=== PATIENT | male | born 2000 | race Caucasian/White ===

== ENCOUNTER 2018-09-21 01:24 | Emergency (ER) | payer OTHER, MEDICAID, SELFPAY ==
[2018-09-21 01:25] VITALS: BP 114/92; PULSE 77; RESP 18; TEMP 36.5; O2SAT 100; BMI 29.5
--- NOTE | 2018-09-21 01:26 | ED.RN ---
CALLED ANDREE FROM [facility] TO TEST THIS PT
--- NOTE | 2018-09-21 01:40 | ED.DCSUM_ITS ---
- ER Visit Summary Date of Service: 09/21/18 Chief Complaint: Right elbow pain History of Present Illness: The patient is a 18 M who presents with right elbow pain. He is right-handed. He states he does have a history of prior similar symptoms. 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 He states he has a history of ulnar collateral ligament sprain and triceps tear. He states that tonight while at work he was having pain with lifting boxes. He denies having pain before he went to work but is noted to be wearing a compression sleeve on his right arm. He denies any specific injury. No fall. He denies recent illness such as fevers nausea vomiting chest pain shortness of breath. Physical Examination: Afebrile vitals are normal Heart regular No respiratory distress Patient has active full range of motion of the right elbow no focal bony tenderness he indicates that his pain is along the ulnar side of the elbow he has brisk capillary refill normal sensation light touch 2+ radial pulse no tenderness or pain with range of motion of the wrist or shoulder Test Results: Not indicated Emergency Department Course and Treatment: Patient has a history of prior similar symptoms and prior UCL sprain. He has no traumatic injury. I am not concerned for fracture or acute bony injury and x-rays are not indicated. This is most likely UCL sprain. He was advised on supportive care including rest ice elevation. He was given naproxen here. Patient discharged. Treatment Plan: [] Disposition: Discharge Impression: Right elbow sprain This note was generated with InExchange dictation software. It may contain incorrect words, spelling, and punctuation that were not noted in review of the chart prior to signing ED Disposition - Plan for ED Patient: Referrals: Josy Teague MD [Primary Care Provider] -
--- NOTE | 2018-09-21 01:41 | DCINST.ED_ITS ---
ED Disposition - Plan for ED Patient: Instructions: ED Sprain Elbow Referrals: Josy Teague MD [Primary Care Provider] - [facility] [GROUP OF PHYSICIANS] -
--- NOTE | 2018-09-21 01:41 | ED.DEP ---
ED Disposition - Plan for ED Patient: Instructions: ED Sprain Elbow Referrals: Josy Teague MD [Primary Care Provider] - [facility] [GROUP OF PHYSICIANS] -
[2018-09-21] MEDS: Naproxen 500 MG Tablet PO (01:49)
[2018-09-21 02:14] VITALS: RESP 16
== END 2018-09-21 02:14 | disposition home or self-care (01) ==
LOC: ED 01:50
PROVIDERS: Emergency Provider Emergency Medicine; Family Provider Pediatrics; PCP Pediatrics
DX: S53.401A Unspecified sprain of right elbow, initial encounter (principal); X58.XXXA Exposure to other specified factors, initial encounter; Y93.9 Activity, unspecified; Y92.9 Unspecified place or not applicable
CPT/HCPCS: 99283

== ENCOUNTER 2021-06-18 18:19 | Emergency (ER) | payer OTHER, SELFPAY ==
[2021-06-18 18:20] VITALS: BP 137/77; PULSE 73; RESP 16; TEMP 36.8; O2SAT 99; BMI 26.9
--- NOTE | 2021-06-18 18:45 | EDS_ITS ---
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 Since that time has had pain with flexion at the hip as well as some extension. He denies any numbness or tingling distally. Pain with ambulation PFSH PFSH Medical History no medical history Allergy/AdvReac Type Severity Reaction Status Date / Time No Known Allergies Allergy Verified 06/18/21 18:20 Social History (Updated 06/18/21 @ 18:[address] Arun Cid, DO) Smoking Status: Never smoker substance use type: does not use ROS ROS ED Constitutional Constitutional ED: Denies chills, fever(s) or weight loss Eyes Eyes: Denies change in vision or diplopia ENT ENT ED: Denies ear pain, rhinorrhea or sore throat Cardiovascular Cardiovascular: Denies chest pain, orthopnea, palpitations or racing heartbeat Respiratory/Chest Respiratory/Chest: Denies cough, dyspnea or orthopnea Gastrointestinal Gastrointestinal: Denies abdominal pain, diarrhea, nausea or vomiting Genitourinary Genitourinary ED: Denies dysuria, hematuria or urinary frequency Musculoskeletal Musculoskeletal: Reports other Details: see HPI ; Denies arthralgias or myalgias Integumentary Denies abscess or rash Neurologic Neurologic: Denies headache(s) or weakness Psychiatric Psychiatric: Denies anxiety, depression, suicidal ideation or suicidal thoughts Endocrine Endocrinology: Denies polydipsia, polyphagia or polyuria Allergic/Immunologic Allergic/Immunologic ED: Denies mouth swelling, tongue swelling or urticaria EXAM Physical Exam Const Vital Signs: 06/18/21 18:20 Temperature 98.3 F Temperature Source Temporal Pulse Rate 73 Respiratory Rate 16 Blood Pressure 137/77 H Blood Pressure Mean 97 Pulse Ox 99 Oxygen Delivery Method Room Air Positive well nourished and well developed General Appearance ED: well developed HEENT Reports normocephalic, head/scalp atraumatic, TM's clear and moist mucous membranes Negative for trauma Tympanic Membrane ED: Yes TM's clear Eyes PERRL and EOMs intact bilaterally Neck no lymphadenopathy, supple and no JVD Resp normal respiratory effort and clear to auscultation bilaterally Cardio regular rate, regular rhythm and no murmurs GI normal to inspection, nondistended, normoactive bowel sounds and non-tender Palpation: soft Back/Spine no CVA tenderness and normal ROM Extremity Extremity Narrative: Patient has very focal tenderness over his iliopsoas and quadricep insertion point. Is no significant hematoma. I do not appreciate aneurysm/pseudoaneurysm. Strong femoral pulse. There is no ecchymosis noted. No hernia is palpated. Scrotum is normal. General Extremety ED: Yes tenderness; Negative for edema General Extremity: Negative for edema Neuro oriented x3 and CN's II-XII intact bilaterally Sensorium / Orientation: alert Motor Exam: strength 5/5 throughout Psych mental status grossly normal Mood & Affect: Negative for depressed or tearful Skin no rashes or lesions noted and no wounds MDM MDM MDM Narrative Medical decision making narrative: My interpretation of the plain film of the pelvis is no acute process. I suspect the patient has sustained a deep hip flexor bruise. Would recommend rest ice and time. Follow-up with primary care if not improving Discharge Plan Triage Chief Complaint: Lower Extremity Injury ED Provider: Arun Cid Dx/Rx/DC Orders Clinical Impression: Hematoma of iliopsoas muscle Instructions: ED Hematoma Primary Care Provider: Josy Teague Referrals: Josy Teague MD [Primary Care Provider] - 10-14 Days if not better Disposition Disposition: Home, Self Care
--- NOTE | 2021-06-18 18:55 | RAD_ITS ---
STUDY: X-RAY - PELVIS REASON FOR EXAM: Male, 20 years old. Injured right leg. [employer] this morning during training session. Hand cuff krishnamurthy which shoved into right groin area. TECHNIQUE: One view of the pelvis was obtained. COMPARISON: None. FINDINGS: There is a non-specific bowel gas pattern. Normal visualized soft tissue structures. Normal bilateral iliac wings, sacroiliac joints and visualized sacrum. Normal visualized bilateral superior and inferior pubic rami. Normal pubic symphysis. Normal ischial tuberosities. Normal visualized right femoral head. Normal right acetabulum. Normal right hip joint. Normal visualized left femoral head. Normal left acetabulum. Normal left hip joint. RAD/Pelvis 1 or 2 Views IMPRESSION: Normal x-ray examination of the pelvis. Electronically Signed: Lacho Neely DO at 19:06 EDT Tel [phone], Service support ,
[2021-06-18 19:39] VITALS: RESP 16
== END 2021-06-18 19:40 | disposition home or self-care (01) ==
PROVIDERS: Emergency Provider Emergency Medicine; PCP Pediatrics
DX: S70.01XA Contusion of right hip, initial encounter (principal); W50.0XXA Accidental hit or strike by another person, initial encounter; Y93.9 Activity, unspecified; Y92.9 Unspecified place or not applicable
CPT/HCPCS: 72170; 99282

== ENCOUNTER 2025-01-16 00:44 | Emergency (ER) | payer OTHER, SELFPAY ==
[2025-01-16 00:45] VITALS: BP 177/82; PULSE 81; RESP 16; TEMP 36.6; O2SAT 98
--- OUTSIDE RECORDS SUMMARY | 2025-01-16 01:32 | XMS RPT_ITS | CCD ---
Author Organization [facility] Care Team Providers Care Repair Tech Name [employer], [facility] Physicians Primary Care Provider [employer], [facility] Primary Care Unavailable STEPHON, ARIANA Referring Unavailable STEPHON, ARIANA Attending Unavailable STEPHON, ARIANA Referring Unavailable INC, [facility] Primary Care Unavailable INC, [facility] Primary Care Unavailable STEPHON, ARIANA Referring Unavailable Problems Problem Classification Problem Date Documented Da te Episodic/Chronic Administrative/social admission (8 sources) Patient encounter status; Translations: [Encounter for pre-employment examination] Onset: 03-21-2023 03-21-2023 Episodic Results Test Name Value Interpretation Reference Range Facility ECG 12-LEADon 03-29-2023 ECG 12-LEAD IMPRESSION: SINUS RHYTHM No previous ECG available for comparison Electronically Signed On 03-29-2023 11:23:10 EDT by Blair Perez Normal [facility] [employer] [facility] No Panel InformationOrdered By: Blair Perez on 03-29-2023 P [place] 12 degrees [facility] Work Phone: VT Interval 172 ms [employer] Work Phone: QRS [place] 48 degrees [facility] Work Phone: QRSD Interval 94 ms [facility] Work Phone: QT Interval 400 ms [employer] Work Phone: QTC Interval 400 ms [employer] Work Phone: T Wave [place] 19 degrees [employer] Work Phone: [employer] Work Phone: No Panel Informationon 03-29 SINUS RHYTHM No previous ECG available for comparison Electronically Signed On 03-29-2023 11:23:10 EDT by Blair Perez Blair Lozano M D - 03/29/2023 IMPRESSION: SINUS RHYTHM No previous ECG available for comparison Electronically Signed On 03-29-2023 11:23:10 EDT by Blair Perez [facility] [employer] Vital signsOrdered By: Juan Perez on 03-29-2023 Heart rate 60 /min bpm [facility] [employer] Phone: Cardiac stress study Procedu reOrdered By: Seth Chu on 03-21-2023 Angina Index 0 [facility] [employer] Work Phone: Baseline Diastolic BP 80 mmHg [place] [employer] Work Phone: Baseline HR 100 bpm [facility] [employer] Work Phone: Baseline ST Depression 0 mm [facility] [employer] Work Phone: Baseline Systolic BP 136 mmHg [facility] [employer] Work Phone: Moses Treadmill Score 11 [facility] [employer] Work Phone: Exercise Duration Seconds 18 sec [facility] [employer] Work Phone: Exercise Duration Time 11 min [facility] [employer] Work Phone: Recovery Stage 1 BP 170/80 mmHg [facility] [employer] Phone: Recovery Stage 1 HR 137 bpm [facility] [employer] Work Phone: Recovery Stage 2 BP 149/57 mmHg [facility] [employer] Phone: Recovery Stage 2 HR 125 bpm [facility] [employer] Phone: Recovery Stage 3 BP 166/70 mmHg [facility] [employer] Work Phone: Recovery Stage 3 HR 117 bpm [facility] [employer] Work Phone: Stress Diastolic BP 100 mmHg [facility] [employer] Work Phone: Stress Estimated Workload 13.4 METS [facility] [employer] Work Phone: Stress Peak HR 193 bpm [facility] Work Phone: Stress Percent HR Achieved 98 % [facility] [employer] Phone: Stress Rate Pressure Product 72561 bpm*mmHg [facility] [employer] Work Phone: Stress ST Depression 0 mm [facility] [employer] Work Phone: Stress Stage 1 BP 190/88 mmHg [facility] Work Phone: Stress Stage 1 HR 118 bpm [facility] Work Phone: Stress Stage 2 BP 190/96 mmHg [facility] Work Phone: Stress Stage 2 HR 144 bpm [facility] Work Phone: Stress Stage 3 BP 186/100 mmHg [facility] Work Phone: Stress Stage 3 HR 179 bpm [facility] Work Phone: Stress Systolic BP 186 mmHg [facility] Work Phone: Stress Target HR 196 bpm [facility] Work Phone: Cardiac stress study Procedu gutierrez 03-21-2023 Stress ECG: There were no arrhythmias during stress. No ST depression was noted. Arrhythmias during recovery: rare PVCs. There were no ST changes during recovery. Conclusion: The EKG stress test is negative for ischemia. Stress Test: A Ankit protocol stress test was performed. Overall, the patient's exercise capacity was average for their age. The patient reached stage 4 of the protocol after exercising for 11 min and 18 sec. The patient experienced no angina during the test. Blood pressure demonstrated a normal response and heart rate demonstrated a normal response to stress. The patient's heart rate recovery was normal. The patient reported no symptoms during the stress test. Resting ECG: The ECG shows normal sinus rhythm. Resting ECG shows no ST-segment deviation. Resting ECG The ECG shows normal sinus rhythm. Resting ECG shows no ST-segment deviation. Stress Findings A Ankit protocol stress test was performed. Overall, the patient's exercise capacity was average for their age. The patient reached stage 4 of the protocol after exercising for 11 min and 18 sec. The patient experienced no angina during the test. Masha rating of perceived exertion was 17. Blood pressure demonstrated a normal response and heart rate demonstrated a normal response to stress. The patient's heart rate recovery was normal. The patient reported no symptoms prior to the stress test. The patient reported no symptoms during the stress test. The test was stopped because the patient experienced fatigue. Stress ECG There were no arrhythmias during stress. No ST depression was noted. Arrhythmias during recovery: rare PVCs. There were no ST changes during recovery. Conclusion: The EKG stress test is negative for ischemia. CV EPIPHANY XR Chest 2 Viewson Negative chest. Report Dictated on Electronically Signed By: Lefty Mcqueen DO Electronically Signed Date/Time: 03/21/2023 11:32 AM EDT [facility] 2000 [id number] Exam Date/Time: 03/21/2023 11:39 Procedure: XR CHEST 2 VIEWS Ordering Provider: MCINTYRE MICHAEL Reason For Exam: Z02.1 CHEST, PA & LATERAL: INDICATION: Preemployment physical COMPARISON: No previous studies are available for comparison. PA and lateral views of the chest were obtained. The heart is normal in size. The mediastinal silhouette is normal. The lungs are clear. There are no effusions or infiltrates. There is no pleural thickening. The osseous structures are unremarkable. [facility] Lefty Mcqueen DO - 03/21/2023 Patient Name: KHOI ANNE : 2000 Exam Date/Time: 03/21/2023 11:39 Procedure: XR CHEST 2 VIEWS Ordering Provider: MCINTYRE MICHAEL Reason For Exam: Z02.1 CHEST, PA & LATERAL: INDICATION: Preemployment physical COMPARISON: No previous studies are available for comparison. PA and lateral views of the chest were obtained. The heart is normal in size. The mediastinal silhouette is normal. The lungs are clear. There are no effusions or infiltrates. There is no pleural thickening. The osseous structures are unremarkable. IMPRESSION: Negative chest. Report Dictated on Electronically Signed By: Lefty Mcqueen DO Electronically Signed Date/Time: 03/21/2023 11:32 AM EDT [facility] [employer] Radiology Study observation (narrative) [employer] XR Chest 2 ViewsOrdered By: Lefty Mcqueen on 03-21-2023 [employer] Work Phone: Urgent Care Visit Reporton 1 2020 Urgent Care Visit Report [facility] [address] [place] [address] OFFICE VISIT Date of Service: 07/02/21 MR#: [id number] Acct: [id number] Name: KHOI ANNE Rep #: [id number] : 2000 Provider: ERICA Thomson Age/Sex: 20/M Location: [facility] [place] Status: Signed Intake Intake Visit Reasons: PE PHYSICAL/COW Allergies No Known Allergies Allergy (Verified 06/29/21 14:19) [facility] Medical History (Updated 06/29/21 @ 14:19 by Jane Carolina) Physical exam, pre-employment Social History (System 06/29/21 @ 14:19 by Jane Carolina) Smoking Status: Never smoker alcohol intake: never substance use type: does not use HPI HPI Details: KHOI ANNE, is a 20 M who presents to the office today for preemployment physical. Please see corresponding scanned documents with today's date. Office Procedures Physical Exam Coding PE Coding Pre-employment PE: Yes Coding Level of Care Code No Charge Diagnoses Physical exam, pre-employment Z02.1 CPT Codes PE Coding - Pre-employment PE: Yes (PREPE) Assessment and Plan Assessment and Plan (1) Physical exam, pre-employment: Status: Acute 07/02/21 1243 Date Ozzie Angelo Signature: Date (if applicable) CC: Normal [facility] Emergency Department Summary on 06-18-2021 Emergency Department Summary [facility] Medical Records Department [address] [place] [address] Emergency Department Summary 06/18/21 MR#: [id number] Acct: [id number] Name: KHOI ANNE Rep #: [id number] : 2000 20 From: Arun Cid DO PCP: Dr. 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 Since that time has had pain with flexion at the hip as well as some extension. He denies any numbness or tingling distally. Pain with ambulation PFSH PFSH Medical History no medical history Allergy/AdvReac Type Severity Reaction Status Date / Time No Known Allergies Allergy Verified 06/18/21 18:20 Social History (Updated 06/18/21 @ 18:[address] Arun Cid DO) Smoking Status: Never smoker substance use type: does not use ROS ROS ED Constitutional Constitutional ED: Denies chills, fever(s) or weight loss Eyes Eyes: Denies change in vision or diplopia ENT ENT ED: Denies ear pain, rhinorrhea or sore throat Cardiovascular Cardiovascular: Denies chest pain, orthopnea, palpitations or racing heartbeat Respiratory/Chest Respiratory/Chest: Denies cough, dyspnea or orthopnea Gastrointestinal Gastrointestinal: Denies abdominal pain, diarrhea, nausea or vomiting Genitourinary Genitourinary ED: Denies dysuria, hematuria or urinary frequency Musculoskeletal Musculoskeletal: Reports other Details: see HPI ; Denies arthralgias or myalgias Integumentary Denies abscess or rash Neurologic Neurologic: Denies headache(s) or weakness Psychiatric Psychiatric: Denies anxiety, depression, suicidal ideation or suicidal thoughts Endocrine Endocrinology: Denies polydipsia, polyphagia or polyuria Allergic/Immunologic Allergic/Immunologic ED: Denies mouth swelling, tongue swelling or urticaria EXAM Physical Exam Const Vital Signs: 06/18/21 18:20 Temperature 98.3 F Temperature Source Temporal Pulse Rate 73 Respiratory Rate 16 Blood Pressure 137/77 H Blood Pressure Mean 97 Pulse Ox 99 Oxygen Delivery Method Room Air Positive well nourished and well developed General Appearance ED: well developed HEENT Reports normocephalic, head/scalp atraumatic, TM's clear and moist mucous membranes Negative for trauma Tympanic Membrane ED: Yes TM's clear Eyes PERRL and EOMs intact bilaterally Neck no lymphadenopathy, supple and no JVD Resp normal respiratory effort and clear to auscultation bilaterally Cardio regular rate, regular rhythm and no murmurs GI normal to inspection, nondistended, normoactive bowel sounds and non-tender Palpation: soft Back/Spine no CVA tenderness and normal ROM Extremity Extremity Narrative: Patient has very focal tenderness over his iliopsoas and quadricep insertion point. Is no significant hematoma. I do not appreciate aneurysm/pseudoaneury sm. Strong femoral pulse. There is no ecchymosis noted. No hernia is palpated. Scrotum is normal. General Extremety ED: Yes tenderness; Negative for edema General Extremity: Negative for edema Neuro oriented x3 and CN's II-XII intact bilaterally Sensorium / Orientation: alert Motor Exam: strength 5/5 throughout Psych mental status grossly normal Mood Affect: Negative for depressed or tearful Skin no rashes or lesions noted and no wounds MDM MDM MDM Narrative Medical decision making narrative: My interpretation of the plain film of the pelvis is no acute process. I suspect the patient has sustained a deep hip flexor bruise. Would recommend rest ice and time. Follow-up with primary care if not improving Discharge Plan Triage Chief Complaint: Lower Extremity Injury ED Provider: Arun Cid Dx/Rx/DC Orders Clinical Impression: Hematoma of iliopsoas muscle Instructions: ED Hematoma Primary Care Provider: Josy Teague Referrals: Josy Teague MD [Primary Care Provider] - 10-14 Days if not better Disposition Disposition: Home, Self Care What to do if you have Problems For any increased pain, shortness of breath, bleeding, nausea or vomiting, chest pain, or any unexpected problems, contact your Primary Care Provider. Call [facility] ([phone]) or report to the closest Emergency Room. Call 911 if necessary. 06/18/21 9697 Cosigner Signature (if applicable): CC: Dr. Josy Teague MD Signed Normal [facility] Pelvis 1 or 2 Viewson 2020 Pelvis 1 or 2 Views [facility] Imaging Services [address] [place] [address] Pelvis 1 or 2 Views MR#: [id number] Acct: [id number] Name: KHOI ANNE Rep #: [id number] : 2000 M 20 From: Lacho Neely DO PCP: Dr. Josy Teague MD Status: DEP ER Study: Pelvis 1 or 2 Views Date of Exam: 06/18/21 Exam# [id number] Ordering Dr: Arun Cid DO STUDY: X-RAY - PELVIS REASON FOR EXAM: Male, 20 years old. Injured right leg. [employer] this morning during training session. Hand cuff krishnamurthy which shoved into right groin area. TECHNIQUE: One view of the pelvis was obtained. COMPARISON: None. FINDINGS: There is a non-specific bowel gas pattern. Normal visualized soft tissue structures. Normal bilateral iliac wings, sacroiliac joints and visualized sacrum. Normal visualized bilateral superior and inferior pubic rami. Normal pubic symphysis. Normal ischial tuberosities. Normal visualized right femoral head. Normal right acetabulum. Normal right hip joint. Normal visualized left femoral head. Normal left acetabulum. Normal left hip joint. RAD/Pelvis 1 or 2 Views IMPRESSION: Normal x-ray examination of the pelvis. Electronically Signed: Lacho Neely DO at 19:06 EDT Tel [phone], Service support , CC: Dr. Josy Teague MD; Dr. Arun Cid DO Mammography Technologist: Signed Normal [facility] Urgent Care Visit Reporton 0 12-25-2020 Urgent Care Visit Report [facility] [address] [place] [address] [address] [place] [address] OFFICE VISIT Date of Service: 12/25/20 MR#: [id number] Acct: [id number] Name: KHOI ANNE Rep #: [id number] : 2000 Provider: ERICA colmenares Age/Sex: 20/M Location: [facility] [place] Status: Signed Intake Intake Visit Reasons: [employer] PHYSICAL Allergies No Known Allergies Allergy (Verified 09/25/18 09:26) [facility] Medical History (Updated 12/25/20 @ 14:30 by ERICA Campos) Physical exam, pre-employment Social History (Updated 09/25/18 @ 18:31 by ERICA Johnson) Smoking Status: Never smoker alcohol intake: never HPI HPI Details: KHOI ANNE, is a 20 M who presents to the office today for Office Procedures Physical Exam Coding PE Coding Sports/School Physical: No DOT PE: No Pre-employment PE: Yes Additional Details: [employer] Coding Level of Care Code No Charge Diagnoses Physical exam, pre-employment Z02.1 CPT Codes PE Coding - Pre-employment PE: Yes (PREPE) Assessment and Plan Assessment and Plan (1) Physical exam, pre-employment: Status: Acute Plan: See attached scanned [facility] preemployment physical examination forms corresponding with today's date 12/25/20 1430 Date Conrado Angelo Signature: Date (if applicable) CC: [facility] 04-16-2019 [facility] Office Visit ([facility] ) KHOI ANNE ([id number]) 2000 M Date Time Provider Department 04/16/19 8:30 PM RUBÉN HERNANDEZ) [facility] During your visit today, we recorded the following information about you: Temperature Pulse Respiration Blood pressure 97.3 degrees 78/minute 16/minute 122/70 Weight 93.9 kg Rubén Hernandez PA-C 04/16/2019 9:07 PM Signed Subjective HPI Pt presents with left upper dental pain for 4 days. He denies facial pain or swelling. It has been years since he has seen a dentist. No fever or drainage. He tried tylenol and ibuprofen otc. The ibuprofen helped some. Review of Systems HENT: Dental pain All other systems reviewed and are negative. PAST MEDICAL HISTORY Diagnosis Date - PM - PAST MEDICAL HISTORY OF 06/2000 Sutures in forehead - PM - PAST MEDICAL HISTORY OF 03/2008 Normal Color Vision Current Outpatient Medications Medication Sig Dispense Refill - clindamycin (CLEOCIN) 300 mg capsule Take 1 capsule by mouth three times daily for 10 days. 30 capsule 0 - lactobacillus rhamnosus (CULTURELLE) 15 billion cell capsule Take 1 capsule by mouth once daily. 30 capsule 0 - ibuprofen (MOTRIN) 800 mg tablet Take 1 tablet by mouth every 8 hours as needed for Pain (with food.). 30 tablet 0 No current facility-administered medications for this visit. PAST SURGICAL HISTORY Procedure Laterality Date - CIRCUMCISION,CLAMP,NE WBORN FAMILY HISTORY Problem Relation Age of Onset - Arthritis Paternal Grandfather - other (lung cancer) Paternal Grandfather - Cancer Maternal Aunt Breast Social History Tobacco Use - Smoking status: Never Smoker - Smokeless tobacco: Never Used Substance Use Topics - Alcohol use: Not on file - Drug use: Not on file BP 122/70 Pulse 78 Temp 36.3 ?C (97.3 ?F) (Tympanic) Resp 16 Wt 93.9 kg (207 lb) BMI 27.85 kg/m? Objective Physical Exam Constitutional: He is well-developed, well-nourished, and in no distress. HENT: Head: Normocephalic and atraumatic. Mouth/Throat: Tooth number 14 has decay and some gumline swelling and redness. No trismus. No overlying facial swelling. Cardiovascular: Normal rate, regular rhythm and normal heart sounds. Pulmonary/Chest: Effort normal and breath sounds normal. No respiratory distress. He has no wheezes. He has no rales. Neurological: He is alert. Skin: Skin is warm and dry. No rash noted. Nursing note and vitals reviewed. ASSESSMENT/PLAN: 1. Pain, dental - ICD9: 525.9, ICD10: K08.89 Given clindamycin and ibupofen with probiotic. Pt has never had PCN but his mother was allergic so he was told not to use it. I advised he may seek out pcn allergy testing as it is a commonly used antibiotic and now we have to use something that may potentially have more side effects. Pt understands. Rubén Hernandez PA-C Referring Provider: SELF [200] Allergies As of Date: 04/16/2019 Noted Allergy Reaction CATS 09/08/2005 Comments: runny nose environmental [Other] 09/08/2005 Comments: itchy water and red eyes PENICILLIN 03/10/2016 16 - Unknown stuffed animals [Other] 09/08/2005 Comments: congested Date Reviewed: 04/16/2019 Reviewed by: Josie Min Ma - Fully Assessed Reason for Visit: Dental Problem [31] Cmt: top left x 2 days Primary Visit Diagnosis:Pain, dental [K08.89] Order(s):clindamycin (CLEOCIN) 300 mg capsuleTake 1 capsule by mouth three times daily for 10 days.Disp: 30 capsuleRfl: 0 lactobacillus rhamnosus (CULTURELLE) 15 billion cell capsuleTake 1 capsule by mouth once daily.Disp: 30 capsuleRfl: 0 ibuprofen (MOTRIN) 800 mg tabletTake 1 tablet by mouth every 8 hours as needed for Pain (with food.).Disp: 30 tabletRfl: 0 Prescriptions as of 04/16/2019 Sig: CLINDAMYCIN HCL 300 MG CAPSULE Take 1 capsule by mouth three* LACTOBACILLUS RHAMNOSUS GG 15* Take 1 capsule by mouth once * IBUPROFEN 800 MG TABLET Take 1 tablet by mouth every * Problem List As Of Date 04/16/2019 Noted Resolved Closed Fracture of Unspecified Phalanx or Phala*INVALID FOR* Elbow strain [S46.919A] INVALID FOR* Prescriptions ordered this encounter Disp Refills Start End CLINDAMYCIN HCL 300 MG CAPSULE 30 c* 0 04/16/2019 04/26/2019 Route: ORAL Sig: Take 1 capsule by mouth three times daily for 10 days. LACTOBACILLUS RHAMNOSUS GG 15 BILLIO* 30 c* 0 04/16/2019 05/16/2019 Route: ORAL Sig: Take 1 capsule by mouth once daily. IBUPROFEN 800 MG TABLET 30 t* 0 04/16/2019 Route: ORAL Sig: Take 1 tablet by mouth every 8 hours as needed for Pain (with food.). Encounter Status:Closed by RUBÉN HERNANDEZ PA-C on 04/16/19 Normal [facility] PROGRESSon 04-16-2019 PROGRESS HNO ID: [id number] Author: Rubén Hernandez (Pa) Service: ? Author Type: Physician [employer] Manager Type: Progress Notes Filed: 04/16/2019 9:07 PM Note Text: Subjective HPI Pt presents with left upper dental pain for 4 days. He denies facial pain or swelling. It has been years since he has seen a dentist. No fever or drainage. He tried tylenol and ibuprofen otc. The ibuprofen helped some. Review of Systems HENT: Dental pain All other systems reviewed and are negative. PAST MEDICAL HISTORY Diagnosis Date - PMH - PAST MEDICAL HISTORY OF 06/2000 Sutures in forehead - PMH - PAST MEDICAL HISTORY OF 03/2008 Normal Color Vision Current Outpatient Medications Medication Sig Dispense Refill - clindamycin (CLEOCIN) 300 mg capsule Take 1 capsule by mouth three times daily for 10 days. 30 capsule 0 - lactobacillus rhamnosus (CULTURELLE) 15 billion cell capsule Take 1 capsule by mouth once daily. 30 capsule 0 - ibuprofen (MOTRIN) 800 mg tablet Take 1 tablet by mouth every 8 hours as needed for Pain (with food.). 30 tablet 0 No current facility-administered medications for this visit. PAST SURGICAL HISTORY Procedure Laterality Date - CIRCUMCISION,CLAMP,NE WBORN FAMILY HISTORY Problem Relation Age of Onset - Arthritis Paternal Grandfather - other (lung cancer) Paternal Grandfather - Cancer Maternal Aunt Breast Social History Tobacco Use - Smoking status: Never Smoker - Smokeless tobacco: Never Used Substance Use Topics - Alcohol use: Not on file - Drug use: Not on file BP 122/70 Pulse 78 Temp 36.3 ?C (97.3 ?F) (Tympanic) Resp 16 Wt 93.9 kg (207 lb) BMI 27.85 kg/m? Objective Physical Exam Constitutional: He is well-developed, well-nourished, and in no distress. HENT: Head: Normocephalic and atraumatic. Mouth/Throat: Tooth number 14 has decay and some gumline swelling and redness. No trismus. No overlying facial swelling. Cardiovascular: Normal rate, regular rhythm and normal heart sounds. Pulmonary/Chest: Effort normal and breath sounds normal. No respiratory distress. He has no wheezes. He has no rales. Neurological: He is alert. Skin: Skin is warm and dry. No rash noted. Nursing note and vitals reviewed. ASSESSMENT/PLAN: 1. Pain, dental - ICD9: 525.9, ICD10: K08.89 Given clindamycin and ibupofen with probiotic. Pt has never had PCN but his mother was allergic so he was told not to use it. I advised he may seek out pcn allergy testing as it is a commonly used antibiotic and now we have to use something that may potentially have more side effects. Pt understands. Rubén Hernandez PA-C Normal [facility] CNOVon 01-22-2019 CNOV Office Visit (PEDSWS ) KHOI ANNE ([id number]) 2000 M Date Time Provider Department 01/22/19 4:30 PM ANNIE JULIO During your visit today, we recorded the following information about you: Temperature Pulse Respiration Blood pressure 99.9 degrees 76/minute 14/minute 114/78 Weight Height 94.8 kg 1.836 m Annie Julio MD 01/27/2019 4:55 PM Signed CC: Pain (Shoulder Pain) (right shoulder pain x 2 days, constant. No known injuries.) HPI: Mr. Khoi Anne is a 18 year old right hand dominant male who presents today as an initial visit with a chief complaint of right shoulder pain for the past 2 days after pitching in a baseball game. He does state that the pain has been intermittently present at a very minor level for the last 2 months. He complains of aching pain about the anterior and superior aspect of the shoulder. This pain is constant. He denies nocturnal pain. The pain is exacerbated by sports. Previous treatments have included none. He denies proximal radiation. He denies distal radiation. He denies numbness, tingling, or electric shocks. He denies popping, clicking, catching, grinding, or instability. He denies swelling, mass, warmth, fevers, chills, sweats, adenopathy, fatigue, weight gain, weight loss, and shortness of breath. PAST MEDICAL HISTORY Diagnosis Date - PMH - PAST MEDICAL HISTORY OF 06/2000 Sutures in forehead - PMH - PAST MEDICAL HISTORY OF 03/2008 Normal Color Vision PAST SURGICAL HISTORY Procedure Laterality Date - CIRCUMCISION,CLAMP,NE WBORN No current outpatient medications on file. No current facility-administered medications for this visit. ALLERGIES Allergen Reactions - Cats runny nose - Environmental [Othe* itchy water and red eyes - Penicillin Unknown - Stuffed Animals [Ot* congested FAMILY HISTORY Problem Relation Age of Onset - Arthritis Paternal Grandfather - other (lung cancer) Paternal Grandfather - Cancer Maternal Aunt Breast Social History Tobacco Use - Smoking status: Never Smoker - Smokeless tobacco: Never Used Substance Use Topics - Alcohol use: Not on file - Drug use: Not on file Activity level: club, sport/activity: baseball REVIEW OF SYSTEMS: GENERAL: Negative for malaise, significant weight loss, night sweats and fever HEENT: No trouble swallowing RESPIRATORY: Negative for cough, wheezing and shortness of breath CARDIOVASCULAR: Negative for chest pain, leg swelling, palpitations, orthopnea GI: Negative for abdominal discomfort, hematochezia, melena, hematemesis, change in bowel habits, diarrhea, constipation, nausea or vomiting. MUSCULOSKELETAL: See HPI PHYSICAL EXAM General: BP 114/78 Pulse 76 Temp (Src) 99.9 (Temporal) Resp 14 Ht 6' .283 (1.84m) Wt 209 lb (94.8kg) BMI 28.12 kg/(m2). He is alert and oriented x3. Mr. Anne is a pleasant, well-appearing, well-nourished male who is of normal affect and mood. He is here accompanied by his mother today. C-Spine: ROM WNL Neurological: C5: Motor intact in the deltoid and flexing the elbow. Sensation to light touch intact over lateral shoulder. C6: Motor intact with wrist extension. Sensation to light touch intact over thumb and index finger. C7: Motor intact with elbow and wrist extension. Sensation to light touch intact over the long digit C8: Motor intact with finger abduction. Sensation to light touch intact over the ring and small digits. Shoulder Right Left Atrophy None None Skin intact intact Motion/Strength AROM PROM Strength AROM PROM Strength Forward Flexion 180? 180? 5/5 180? 180? 5/5 Abduction 180? 180? 5/5 180? 180? 5/5 External Rotation 70? 70? 5/5 70? 70? 5/5 Internal Rotation T10 T10 5/5 T6 T6 5/5 Tenderness Positive: acromioclavicular joint, cross body stress abduction Negative: long head of the biceps, Yerguson's exam, Neer's test, Hawkin's test, supraspinatus stress test, resisted external rotation, [place]'s test, Speed's test and lift off test none Instability Negative/ negative sulcus Negative/ negative sulcus Drop Test Negative Negative RADIOGRAPHS: I independently reviewed the right shoulder radiographs dated today which revealed no acute processes, fractures, or dislocations. IMPRESSION: 18 year old male with Sprain of acromioclavicular joint, right, initial encounter (primary encounter diagnosis) RECOMMENDATION/PLAN: I discussed the radiographic and physical exam findings with the patient and the pathology as it relates to his current symptomatology. I educated the patient about conservative treatment. We have agreed on the following treatment plan: 1. Medication: OTC NSAIDS/anaglesics as directed. 2. Test(s)/Imaging/Refer ral(s): None. 3. Intervention: REST. NO THROWING FOR 3 WEEKS. May then start with a gradual throwing program. 4. Follow-up: If no improvement refer to orthopedic surgery. Annie Julio MD Referring Provider: SELF [[id number]] Allergies As of Date: 01/22/2019 Noted Allergy Reaction CATS 09/08/2005 Comments: runny nose environmental [Other] 09/08/2005 Comments: itchy water and red eyes PENICILLIN 03/10/2016 16 - Unknown stuffed animals [Other] 09/08/2005 Comments: congested Date Reviewed: 01/22/2019 Reviewed by: Becky Santamaria RN - Fully Assessed Reason for Visit: Pain (Shoulder Pain) [1343] Cmt: right shoulder pain x 2 days, constant. No known injuries. Primary Visit Diagnosis:Sprain of acromioclavicular joint, right, initial encounter [S43.51XA] Other Visit Diagnosis:Chronic right shoulder pain [M25.511, G89.29] Order(s):XR SHOULDER GENERAL 3V OR MORE AP/TRUE AP/OTHER RT [[id number]] Order #: [id number] FUTURE Problem List As Of Date 01/22/2019 Noted Resolved Closed Fracture of Unspecified Phalanx or Phala*INVALID FOR* Elbow strain [S46.919A] INVALID FOR* Encounter Status:Closed by ANNIE JULIO MD on 01/27/19 [facility] 01-22-2019 PROGRESS HNO ID: [id number] Author: Angelique Washington (Rt) David oMrales Service: ? 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 PATIENT GENDER DATA: Male PATIENT RELEVANT IMPLANT DATA REVIEWED: Not Applicable RADIOLOGY DEPARTMENT: General X-ray: Exam(s) Completed: Upper Extremity X-Ray(s): Shoulder, AP / TRUE AP / SUPRA OUTLET right : PERIPHERAL IV DATA: Not applicableK SIGNED BY: RT Berlin January 22, 2019 5:01 PM [facility] PROGRESS HNO ID: [id number] Author: Annie Julio Service: ? Author Type: Physician Type: Progress Notes Filed: 01/27/2019 4:55 PM Note Text: CC: Pain (Shoulder Pain) (right shoulder pain x 2 days, constant. No known injuries.) HPI: Mr. Khoi Anne is a 18 year old right hand dominant male who presents today as an initial visit with a chief complaint of right shoulder pain for the past 2 days after pitching in a baseball game. He does state that the pain has been intermittently present at a very minor level for the last 2 months. He complains of aching pain about the anterior and superior aspect of the shoulder. This pain is constant. He denies nocturnal pain. The pain is exacerbated by sports. Previous treatments have included none. He denies proximal radiation. He denies distal radiation. He denies numbness, tingling, or electric shocks. He denies popping, clicking, catching, grinding, or instability. He denies swelling, mass, warmth, fevers, chills, sweats, adenopathy, fatigue, weight gain, weight loss, and shortness of breath. PAST MEDICAL HISTORY Diagnosis Date - PMH - PAST MEDICAL HISTORY OF 06/2000 Sutures in forehead - PMH - PAST MEDICAL HISTORY OF 03/2008 Normal Color Vision PAST SURGICAL HISTORY Procedure Laterality Date - CIRCUMCISION,CLAMP,NE WBORN No current outpatient medications on file. No current facility-administered medications for this visit. ALLERGIES Allergen Reactions - Cats runny nose - Environmental [Othe* itchy water and red eyes - Penicillin Unknown - Stuffed Animals [Ot* congested FAMILY HISTORY Problem Relation Age of Onset - Arthritis Paternal Grandfather - other (lung cancer) Paternal Grandfather - Cancer Maternal Aunt Breast Social History Tobacco Use - Smoking status: Never Smoker - Smokeless tobacco: Never Used Substance Use Topics - Alcohol use: Not on file - Drug use: Not on file Activity level: club, sport/activity: baseball REVIEW OF SYSTEMS: GENERAL: Negative for malaise, significant weight loss, night sweats and fever HEENT: No trouble swallowing RESPIRATORY: Negative for cough, wheezing and shortness of breath CARDIOVASCULAR: Negative for chest pain, leg swelling, palpitations, orthopnea GI: Negative for abdominal discomfort, hematochezia, melena, hematemesis, change in bowel habits, diarrhea, constipation, nausea or vomiting. MUSCULOSKELETAL: See HPI PHYSICAL EXAM General: BP 114/78 Pulse 76 Temp (Src) 99.9 (Temporal) Resp 14 Ht 6' .283 (1.84m) Wt 209 lb (94.8kg) BMI 28.12 kg/(m2). He is alert and oriented x3. Mr. Anne is a pleasant, well-appearing, well-nourished male who is of normal affect and mood. He is here accompanied by his mother today. C-Spine: ROM WNL Neurological: C5: Motor intact in the deltoid and flexing the elbow. Sensation to light touch intact over lateral shoulder. C6: Motor intact with wrist extension. Sensation to light touch intact over thumb and index finger. C7: Motor intact with elbow and wrist extension. Sensation to light touch intact over the long digit C8: Motor intact with finger abduction. Sensation to light touch intact over the ring and small digits. Shoulder Right Left Atrophy None None Skin intact intact Motion/Strength AROM PROM Strength AROM PROM Strength Forward Flexion 180? 180? 5/5 180? 180? 5/5 Abduction 180? 180? 5/5 180? 180? 5/5 External Rotation 70? 70? 5/5 70? 70? 5/5 Internal Rotation T10 T10 5/5 T6 T6 5/5 Tenderness Positive: acromioclavicular joint, cross body stress abduction Negative: long head of the biceps, Yerguson's exam, Neer's test, Hawkin's test, supraspinatus stress test, resisted external rotation, [place]'s test, Speed's test and lift off test none Instability Negative/ negative sulcus Negative/ negative sulcus Drop Test Negative Negative RADIOGRAPHS: I independently reviewed the right shoulder radiographs dated today which revealed no acute processes, fractures, or dislocations. IMPRESSION: 18 year old male with Sprain of acromioclavicular joint, right, initial encounter (primary encounter diagnosis) RECOMMENDATION/PLAN: I discussed the radiographic and physical exam findings with the patient and the pathology as it relates to his current symptomatology. I educated the patient about conservative treatment. We have agreed on the following treatment plan: 1. Medication: OTC NSAIDS/anaglesics as directed. 2. Test(s)/Imaging/Refer ral(s): None. 3. Intervention: REST. NO THROWING FOR 3 WEEKS. May then start with a gradual throwing program. 4. Follow-up: If no improvement refer to orthopedic surgery. Annie Julio MD Normal 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 pain is anterior and anterior side upper right arm. Chronic right shoulder pain Chronic right shoulder pain . TECHNIQUE: XR SHLDR >/=3V AP/WARREN AP/OTHR RT Laterality: RIGHT Number of different views (projections): 3 M: XB_1 COMPARISON: There are no prior relevant studies for comparison. RESULT: 3 views of the right shoulder show no acute osseous, articular or soft tissue abnormality. Joint spaces are preserved. Visualized right lung is clear. IMPRESSION: No acute process. Mammography Technologist: PSCB Transcribe Date/Time: Jan 22 2019 7:40P Dictated by : SUZANNE JONES MD This examination was interpreted and the report reviewed and electronically signed by: SUZANNE JONES MD on Jan 22 2019 7:41PM EST [id number] Normal [facility] Vital Signs Date Time Vital Sign Value Performing Clinician Faci lity 03-21-2023 15:13-0400 Body height 185.4 cm Ariana Mcintyre MD Work Phone: [facility] [employer] 03-21-2023 15:13-0400 Body mass index (BMI) [Ratio] 29.03 kg/m2 Ariana Mcintyre MD Work Phone: [facility] [employer] 03-21-2023 15:13-0400 Body weight 99.79 kg Ariana Mcintyre MD Work Phone: [facility] [employer] 03-21-2023 15:13-0400 Diastolic blood pressure 81 mm[Hg] Ariana Mcintyre MD Work Phone: [facility] [employer] 03-21-2023 15:13-0400 Heart rate 81 /min Ariana Mcintyre MD Work Phone: [facility] [employer] 03-21-2023 15:13-0400 Systolic blood pressure 136 mm[Hg] Ariana Mcintyre MD Work Phone: [facility] [employer] Encounters Encounter Date Encounter Type Care Provider Facility Start: 03-29-2023 End: 03-30-[address] [facility] Start: 03-29-2023 End: 03-29-2023 Subsequent hospital visit by physician Michele Ecg [facility] Comment on above: Arrived Start: 03-21-2023 End: 03-22-2023 ambulatory [facility] Start: 03-21-2023 End: 03-21-2023 Subsequent hospital visit by physician Ariana Mcintyre MD Work Phone: [facility] [address] [facility] Comment on above: Encounter for pre-em ployment examination Encounter for pre-em ployment examination (Primary Dx) Start: 03-21-2023 End: 03-21-2023 ambulatory ARIANA MCINTYRE [facility] Start: 03-14-2023 Transcribe Orders Ariana donahue MD Work Phone: [facility] [employer] Comment on above: Encounter for pre-em ployment examination (Primary Dx) Procedures Date Procedure Procedure Detail Performing Clinician Start: 03-29-2023 Ecg routine ecg w/le ast 12 lds trcg only w/o i&r Ariana Mcintyre MD Work Phone: Start: 03-21-2023 Cv strs tst xers&/or rx cont ecg trcg only Ariana Mcintyre MD Work Phone: Start: 03-21-2023 Radiologic exam ches t 2 views Ariana Mcintyre MD Work Phone: Plan of Treatment Date Care Activity Detail Author Start: 2048 Zoster Vaccines (1 of 2) Zoste r Vaccines (1 of 2) [facility] Start: 04-14-2023 Influenza vaccination Influenza Vacc ine (#1) [facility] Start: 10-30-2020 DTaP/Tdap/Td Vaccine s (7 - Td or Tdap) DTaP/Tdap/Td Vaccines (7 - Td or Tdap) [facility] Start: 2016 Hepatitis C screening Hepatitis C Sc reening [facility] Start: 05-27-2016 HPV Vaccines (3 - Ma le 3-dose series) HPV Vaccines (3 - Male 3-dose series) [facility] Start: 2010 Depression Screening Depression Scre ening [facility] Start: 03-01-1999 COVID-19 Vaccine (#1) COVID-19 Vacci ne (#1) [facility] Start: 1998 HIV screening HIV Screening [facility] OUTSIDE PROCEDURE SCAN OUTSIDE P ROCEDURE SCAN Procedures Ordered: 03/14/2023 [facility] Comment on above: Ordered: 03/14/2023 OUTSIDE PROCEDURE SCAN OUTSIDE P ROCEDURE SCAN Procedures Ordered: 03/20/2023 [facility] Comment on above: Ordered: 03/20/2023 OUTSIDE PROCEDURE SCAN OUTSIDE P ROCEDURE SCAN Procedures Ordered: 03/21/2023 [facility] Comment on above: Ordered: 03/21/2023 Immunizations Immunization Date Immunization Notes Care Provider Michell camacho 09-12-2016 influenza virus vacc ine, unspecified formulation [facility] 01-26-2016 HPV, unspecified formulation [facility] Payers Date Payer Category Payer Unknown [id number] 2023 Unknown [id number] Social History Date Type Detail Facility Start: 03-21-2023 Tobacco smoking stat [facility] Never smoked tobacco [facility] Start: 03-21-2023 Tobacco use and exposure Smokeless t obacco non-user [facility] Start: 03-21-2023 History of Social function [facility] Start: 03-21-2023 Tobacco use panel [facility] Start: 1998 Sex Assigned At Not on file [facility] Start: 03-11-2023 End: 03-21-2023 Exposure to SARS-CoV-2 (event) Not sure [facility] Tobacco smoking stat [facility] Tobacco smoking consumption unknown [facility] Evaluation note Note Date & Type Note Facility Evaluation note Diagnosis Encounter for pre-employment examination documented in this encounter [facility] Evaluation note Note Date & Type Note Facility Evaluation note Diagnosis Encounter for pre-employment examination documented in this encounter [facility] Evaluation note Note Date & Type Note Facility Evaluation note Diagnosis Encounter for pre-employment examination- Primary Encounter for pre-employment examination documented in this encounter [facility] Evaluation note Note Date & Type Note Facility Evaluation note Diagnosis Encounter for pre-employment examination- Primary Encounter for pre-employment examination documented in this encounter [facility] Health Summary Purpose Family History No Family History Records FoundNo Family History Records FoundNo Family History Records Found Advance Directives No Advanced Directives Records FoundNo Advanced Directives Records FoundNo Advanced Directives Records Found Reason for Referral Specialty Diagnoses / Procedures Referred By Jayashree fuller Referred To Contact Cardiology Diagnoses Encounter for pre-employment examination Procedures Exercise stress test Ariana Mcintyre MD [address] [place] [address] [facility] [address] [facility] [address] [place] [address] Referral ID Status Reason Start Date Expiration Date Visits Re quested Visits Authorized [id number] Closed 03/14/2023 09/10/2023 1 1 Additional Source Comments (unrecognized sect ion and content) No Status Records FoundNo Status Records FoundNo Status Records Found INFORMATION SOURCE (unrecogn ized section and content) DATE CREATED AUTHOR 05/25/[address] [facility] DATE CREATED AUTHOR AUTHOR'S ORGANIZ ATION 07/03/2021 [facility] DATE CREATED AUTHOR AUTHOR'S ORGANIZ ATION 03/30/2023 [facility] Reason for Visit (unrecogniz ed section and content) Specialty Diagnoses / Procedures Referred By Contac t Referred To Contact Cardiology Diagnoses Encounter for pre-employment examination Procedures Exercise stress test Ariana Mcintyre MD [address] [place] [address] [facility] [address] [facility] [address] [place] [address] Referral ID Status Reason Start Date Expiration Date Visits Re quested Visits Authorized [id number] Closed 03/14/2023 09/10/2023 1 1 Care Teams (unrecognized sec tion and content) Repair Tech Relationship Specialty Start Date End Date [facility] [address] [place] [address] PCP - General 03/21/23 Repair Tech Relationship Specialty Start Date End Date [facility] [address] [place] [address] PCP - General 03/21/23 Repair Tech Relationship Specialty Start Date End Date [facility] [address] [place] [address] PCP - General 03/21/23 Repair Tech Relationship Specialty Start Date End Date [facility] [address] [place] [address] PCP - General 03/21/23 Repair Tech Relationship Specialty Start Date End Date [facility] Delisa [address] [place] [address] PCP - General 03/21/23 FOR RECORDS PERTAINING TO PATIENTS WHO ARE OR HAVE BEEN ENROLLED IN A CHEMICAL DEPENDENCY/SUBSTANCEABUSE PROGRAM, SOME INFORMATION MAY BE OMITTED. This clinical summary was aggregated from multiple sources. Caution should be exercised in using it in the provision of clinical care. This summary normalizes information from multiple sources, and as a consequence, information in this document may materially change the coding, format and clinical context of patient data. In addition, data may be omitted in some cases. CLINICAL DECISIONS SHOULD BE BASED ON THE PRIMARY CLINICAL RECORDS. [employer] [facility]. provides no warranty or guarantee of the accuracy or completeness of information in this document.
--- NOTE | 2025-01-16 01:34 | ED.RN ---
The patient does not know whether or not drug screen is required, d/t the nature of the incident, the patient was educated about following up at the [facility] in the morning to get drug screened. All questions answered.
--- NOTE | 2025-01-16 01:42 | EX.ED.DYSGE1 ---
HPI History of Present Illness Chief Complaint: Occup Expose Informant: patient and friend Narrative Narrative: Patient is a 24-year-old male with no significant past medical history. He works as a [employer]. 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 He states that the needle appeared dirty and used. He states that because of the body fluid exposure he presents for evaluation. He states the exposure happened in the last hour or so. [facility] Medical History (Updated 01/16/25 @ 01:[address] Mohsen Nicole, DO) Physical exam, pre-employment Medical History no medical history no medical history Home Medications ?Medication ?Instructions ?Recorded ?Last Taken ?Type emtricitabine 200 mg-tenofovir 1 tab PO DAILY 28 days #28 tabs 01/16/25 Unknown Rx disoproxil fumarate 300 mg tablet (Truvada) ondansetron 4 mg disintegrating 4 mg PO TID PRN nausea and 01/16/25 Unknown Rx tablet vomiting #21 tabs raltegravir 400 mg tablet 400 mg PO BID 28 days #56 tabs 01/16/25 Unknown Rx (Isentress) Allergy/AdvReac Type Severity Reaction Status Date / Time No Known Allergies Allergy Verified 01/16/25 00:47 Social History (Updated 01/16/25 @ 00:48 by Angelita Lord) housing: house Smoking Status: Never smoker alcohol intake: never substance use type: does not use ROS ROS ED Constitutional Constitutional ED: Denies chills or fever(s) Cardiovascular Cardiovascular: Denies chest pain Respiratory/Chest Respiratory/Chest: Denies cough or dyspnea Gastrointestinal Gastrointestinal: Denies abdominal pain, diarrhea, nausea or vomiting Musculoskeletal Musculoskeletal: Denies myalgias Integumentary Reports other Details: Positive needle stick left thumb ; Denies rash Neurologic Neurologic: Denies headache(s) Hematologic/Lymphatic Hematologic/Lymphatic: Denies easy bleeding or easy bruising EXAM Physical Exam Const Vital Signs: 01/16/25 00:45 01/16/25 00:47 01/16/25 01:49 Temperature 98 F 98.2 F Temperature Source Oral Pulse Rate 81 62 Respiratory Rate 16 16 Respiratory Effort Normal Non-Labored Respiratory Pattern Normal Blood Pressure 177/82 H 138/99 H Blood Pressure Mean 113 112 Pulse Ox 98 98 Oxygen Delivery Method Room Air Positive well nourished and well developed General Appearance ED: well developed HEENT HEENT Narrative: Normocephalic atraumatic Eyes PERRL and EOMs intact bilaterally General Eye ED: Negative for scleral icterus Neck supple Resp normal respiratory effort and clear to auscultation bilaterally Cardio regular rate and regular rhythm Extremity Extremity Narrative: Left upper extremity is neurovascularly intact; AIN/PIN are intact and normal There is a dermal layer injury to the volar pad of the left thumb consistent with needlestick exposure. There is no active bleeding or retained foreign body. No surrounding erythema or warmth or lymphangitic streaking. No purulent discharge noted. Remainder the exam is normal Neuro oriented x3, CN's II-XII intact bilaterally and no sensory deficits noted Sensorium / Orientation: alert Motor Exam: strength 5/5 throughout Psych mental status grossly normal Skin no rashes or lesions noted Skin Narrative: Needlestick exposure to the volar surface of the left thumb as documented above MDM MDM MDM Narrative Medical decision making narrative: Patient experienced a needlestick exposure to the left thumb with potential body fluid as the needle was reportedly dirty and used for IV drug use. The patient denies any past medical history and based on the type of injury concern for infection should be less than 1%. However the source patient is refusing to have blood work obtained. There is high risk that the source patient does have hepatitis or HIV based on the history of IV drug abuse. Therefore the decision was made to place the patient on antiviral therapy secondary to this high risk exposure. The patient will be followed by infectious disease. However at this time without signs of cellulitis abscess ligamentous or tendon injury there is no need for further workup. The patient was placed on his antivirals and can follow with infectious disease as an outpatient History & Record Review Discussion w/independent historian: Patient Lab Data Attestation: I reviewed the patient's lab results. Labs: Laboratory Results - last 24 hr 01/16/25 01:15 Hep Bs Antigen Nonreactive Hep Bs Antibody REAC Hepatitis C Antibody Nonreactive HIV 1&2 Antibody Nonreactive Discharge Plan Triage Chief Complaint: Occup Expose ED Provider: Mohsen Nicole Dx/Rx/DC Orders Clinical Impression: Needlestick injury accident with exposure to body fluid Instructions: ED Body Fluid Exposure Not ... Prescriptions: New ondansetron 4 mg tablet,disintegrating 4 mg PO TID PRN (Reason: nausea and vomiting) Qty: 21 2RF emtricitabine-tenofovir (TDF) [Truvada] 200-300 mg tablet 1 tab PO DAILY 28 Days Qty: 28 0RF Isentress 400 mg tablet 400 mg PO BID 28 Days Qty: 56 0RF Primary Care Provider: Care Physician,No Primary Referrals: Jasbir Davidson MD [Med Staff - Active Staff] - (Needlestick exposure) Care Physician,No Primary [Primary Care Provider] - Activity Restrictions/Additional Instructions: Please take the prescribed medication as directed secondary to the concern for infection from your needlestick exposure. Follow-up with Dr. Davidson to discuss potential change of medication and repeat testing and return to the ER should you have any further concerns Print Language: Tajik Disposition Disposition: Home, Self Care Discharge Date/Time: 01/16/25 02:10
[2025-01-16 01:49] VITALS: BP 138/99; PULSE 62; RESP 16; TEMP 36.8; O2SAT 98
[2025-01-16 01:53] LABS: Hepatitis B Surface Antibody REAC
[2025-01-16 01:58] LABS: HIV Nonreactive (Nonreactive); Hepatitis B Surface Antigen Nonreactive (Nonreactive); Hepatitis C Antibody Nonreactive (Nonreactive)
[2025-01-16] MEDS: RALTEGRAVIR POTASSIUM 400 MG TABLET PO (02:08)
[2025-01-16] MEDS: Ondansetron ODT 4 MG Tablet PO (02:08)
[2025-01-16] MEDS: EMTRICITABINE/TENOFOVIR 1 TABLET TABLET PO (02:08)
== END 2025-01-16 02:10 | disposition home or self-care (01) ==
PROVIDERS: Emergency Provider Emergency Medicine; Visit Provider Emergency Medicine
DX: S69.81XA Other specified injuries of right wrist, hand and finger(s), initial encounter (principal); Y93.89 Activity, other specified; Y99.0 Civilian activity done for income or pay; W46.1XXA Contact with contaminated hypodermic needle, initial encounter
CPT/HCPCS: 36415; 86703; 86706; 86803; 87340; 99283